=== PATIENT | male | born 1990 | race African-American/Black ===

== ENCOUNTER 2019-09-12 08:53 | Emergency (ER) | payer BC ==
[~2019-09-12] VITALS: Ht 193 cm; Wt 121.1 kg
[~2019-09-12 08:53] MED LIST: ACETAMINOPHEN-1 EAC1 PO; APAP500 PO; CIPROFLOXACIN500 M1 PO; CIPROFLOXIN HC2.5 M1 OTIC; CLARITIN-D 12 H1 TA1 PO; CLARITIN10 M2 PO; DIPHENHIST50 MG PO; EPIPEN 2-P0.3 MG/0.3 IM; HYDROCODON-ACE1 EAC7 PO; IBUPROFEN 800800 M1 PO; IBUPROFEN 800800 MG PO; NORCO 5-325 TA1 EACH PO; PREDNISONE 10 M10 MG PO; ROBAXIN500 MG PO; SINGULAIR 10 MG10 M1 PO; SYMBICORT80 MCG/4.1 INH; VENTOLIN HFA INH8 GM INH; ZANTAC 150MG T150 MG PO
[2019-09-12] MEDS ORDERED: NORCO 5-325 TA1 EAC1 PO (09:35)
[2019-09-12] MEDS ORDERED: FLEXERIL PO (09:35)
[2019-09-12 09:59] VITALS: BP 160/79
== END 2019-09-12 09:55 | disposition home or self-care (01) ==
LOC: M.ERS 08:53
DX: S46.001A Unspecified injury of muscle(s) and tendon(s) of the rotator cuff of right shoulder, initial encounter (principal); J45.909 Unspecified asthma, uncomplicated; Z88.0 Allergy status to penicillin; X58.XXXA Exposure to other specified factors, initial encounter; Y93.89 Activity, other specified; Y92.89 Other specified places as the place of occurrence of the external cause; Y99.8 Other external cause status